=== PATIENT | female | born 1965 | race Caucasian/White ===

== ENCOUNTER 2018-01-28 14:20 | Emergency (ER) | payer OTHER, SELFPAY ==
--- NOTE | 2018-01-28 15:06 | RAD ---
AP VIEW OF THE CHEST: INDICATION: Chest pain. COMPARISON: Prior exam dated 02/07/16. FINDINGS: Lungs are clear. Cardiomediastinal silhouette is within normal limits. No acute osseous abnormality is evident. IMPRESSION: No acute cardiopulmonary abnormality. POS: HARESH
[2018-01-28 15:19] LABS: #Eosinphils 0.1 thou/uL (0.0-0.7); #Lymphocytes 2.1 thou/uL (1.20-3.40); #Monocytes 0.4 thou/uL (0.11-0.59); #Neutrophils 3.6 thou/uL (1.40-6.50); %Basophils 0.8 % (0.0-1.0); %Lymphocytes 33.9 % (21.0-51.0); %Monocytes 5.6 % (0.0-10.0); %Neutrophils 57.7 % (42.0-75.0); Hemoglobin 13.7 g/dL (12.0-16.0); Mean Corpuscular HGB CONC 35.2 g/dL (32.0-36.0); Mean Corpuscular Hemoglobin 31.6 pg (27.0-31.0); Mean Corpuscular Volume 89.8 fL (78.0-98.0); Mean Platelet Volume 8.2 fL (7.4-10.4); Platelet Count 262 thou/uL (130-400); RBC Distribution Width 11.9 % (11.5-14.5); Red Blood Cell (RBC) Count 4.33 mill/uL (4.20-5.40); White Blood Cell (WBC) Count 6.2 thou/uL (4.8-10.8)
[2018-01-28 15:26] LABS: ALT (SGPT) 15 U/L (8-55); AST (SGOT) 24 U/L (5-34); Albumin 4.5 g/dL (3.5-5.0); Alkaline Phosphatase 73 U/L (40-150); Anion Gap 15 mmol/L (10-20); BUN (Urea Nitrogen) 10 mg/dL (9.8-20.1); Bilirubin, Total 0.6 mg/dL (0.2-1.2); Calc. Creatinine Clearance 0 mL/min (70-130); Calcium 9.7 mg/dL (7.8-10.44); Carbon Dioxide 22 mmol/L (22-29); Chloride 105 mmol/L (98-107); Estimated GFR-MDRD 73; Globulin 2.1 g/dL (2.4-3.5); Glucose 85 mg/dL (70-105); Potassium 4.2 mmol/L (3.5-5.1); Protein, Total 6.6 g/dL (6.0-8.3); Sodium 138 mmol/L (136-145)
[2018-01-28] MEDS ORDERED: Nitroglycerin 2% Ointment 1 INCH/1 GM Packet ONE (15:27)
[2018-01-28 15:32] LABS: Troponin I Less than 0.010 ng/mL (< 0.028)
[2018-01-28 17:52] LABS: CKMB 0.9 ng/mL (0-6.6); Troponin I Less than 0.010 ng/mL (< 0.028)
== END 2018-01-28 19:12 | disposition home or self-care (01) ==
LOC: ERS 14:20
DX: R07.89 Other chest pain (principal); R06.02 Shortness of breath; M79.7 Fibromyalgia; G43.909 Migraine, unspecified, not intractable, without status migrainosus; E03.9 Hypothyroidism, unspecified; F41.9 Anxiety disorder, unspecified; F32.9 Major depressive disorder, single episode, unspecified; F17.210 Nicotine dependence, cigarettes, uncomplicated; Z79.899 Other long term (current) drug therapy
CPT/HCPCS: 36415; 71045; 80053; 82553; 84484; 85025; 85379; 93005

== ENCOUNTER 2018-10-21 12:46 | Outpatient (CLI) | payer OTHER ==
--- NOTE | 2018-10-21 14:30 | MMO ---
Bilateral MAMMO Bilat Screen [facility]DI. CLINICAL HISTORY: Patient is 53 years old and is seen for screening. The patient has no family history of breast cancer. The patient has no personal history of cancer. VIEWS: The views performed were: bilateral craniocaudal and bilateral mediolateral oblique. FILMS COMPARED: The present examination has been compared to prior imaging studies performed at [facility] on 01/26/2014, 04/03/2015 and 02/23/2017. This study has been interpreted with the assistance of computer-aided detection. MAMMOGRAM FINDINGS: There are scattered fibroglandular densities. There are stable benign appearing calcifications seen in the right breast. There are no suspicious masses, suspicious calcifications, or new areas of architectural distortion. IMPRESSION: THERE IS NO MAMMOGRAPHIC EVIDENCE OF MALIGNANCY. A ROUTINE FOLLOW-UP MAMMOGRAM IN 1 YEAR IS RECOMMENDED. ACR BI-RADS Category 2 - Benign finding MAMMOGRAPHY NOTE: 1. A negative mammogram report should not delay a biopsy if a dominant of clinically suspicious mass is present. 2. Approximately 10% to 15% of breast cancers are not detected by mammography. 3. Adenosis and dense breasts may obscure an underlying neoplasm.
== END 2018-10-21 12:47 | disposition home or self-care (01) ==
LOC: SCSMAMMO 12:46
PROVIDERS: ATTEND Family Medicine
DX: Z12.31 Encounter for screening mammogram for malignant neoplasm of breast (principal)
CPT/HCPCS: 77067

== ENCOUNTER 2018-11-15 10:16 | Outpatient (CLI) | payer OTHER ==
--- NOTE | 2018-11-15 10:54 | RAD ---
XR Lumbar Spine 2 Or 3 View HISTORY: Low back pain. COMPARISON: None. FINDINGS: There is minimal scoliotic change convex to the right. Vertebral bodies maintain normal hei ght tiny osteophytes are seen without disc narrowing. Pedicles are intact. No spondylolisthesis. IMPRESSION: Minimal arthritic changes of the spine.
--- NOTE | 2018-11-15 10:56 | RAD ---
XR Cerv Sp Ap Lat STANDARD HISTORY: Neck pain COMPARISON: None. FINDINGS: The vertebral bodies are normal in height. There is mild disc narrowing at C5-6. There are degenerative facet changes present. No soft tissue swelling. IMPRESSION: Mild arthritic changes of the spine.
== END 2018-11-15 10:17 | disposition home or self-care (01) ==
LOC: BICRAD 10:16
PROVIDERS: ATTEND Family Medicine
DX: M54.5 Low back pain (principal); M54.2 Cervicalgia; M47.816 Spondylosis without myelopathy or radiculopathy, lumbar region; M47.812 Spondylosis without myelopathy or radiculopathy, cervical region
CPT/HCPCS: 72040; 72100

== ENCOUNTER 2018-12-27 12:26 | Emergency (ER) | payer OTHER ==
[2018-12-27] MEDS ORDERED: HYDROcodone/Acetaminophen 5/325 mg Tablet ONE (14:24)
== END 2018-12-27 15:15 | disposition home or self-care (01) ==
LOC: ERS 12:26
DX: M54.5 Low back pain (principal); G89.29 Other chronic pain; F41.9 Anxiety disorder, unspecified; F32.9 Major depressive disorder, single episode, unspecified; F17.210 Nicotine dependence, cigarettes, uncomplicated; E03.9 Hypothyroidism, unspecified
CPT/HCPCS: 99283

== ENCOUNTER 2020-05-21 13:18 | Outpatient (CLI) | payer OTHER ==
--- NOTE | 2020-05-21 14:24 | MMO ---
Bilateral MAMMO Bilat Screen [facility]. CLINICAL HISTORY: Patient is 55 years old and is seen for screening. The patient has no family history of breast cancer. The patient has no personal history of cancer. VIEWS: The views performed were: bilateral craniocaudal with tomosynthesis and bilateral mediolateral oblique with tomosynthesis. FILMS COMPARED: The present examination has been compared to prior imaging studies performed at [facility] on 10/21/2018, and at [facility] on 01/26/2014, 04/03/2015 and 02/23/2017. This study has been interpreted with the assistance of computer-aided detection. MAMMOGRAM FINDINGS: There are scattered fibroglandular densities. Finding 1: There are stable benign appearing densities seen in both breasts. Finding 2: There is a lobular mass measuring 8 millimeters with indistinct margins seen in the right breast at 12 o'clock. IMPRESSION: FINDING 1: STABLE BENIGN APPEARING DENSITIES IN BOTH BREASTS ARE BENIGN. FINDING 2: MASS IN THE RIGHT BREAST REQUIRES ADDITIONAL EVALUATION. ADDITIONAL PROJECTIONS (RIGHT CRANIOCAUDAL SPOT COMPRESSION; RIGHT MEDIOLATERAL OBLIQUE SPOT COMPRESSION; AND RIGHT MEDIOLATERAL) ARE RECOMMENDED. AN ULTRASOUND EXAM IS RECOMMENDED IF NEEDED. ADDITIONAL IMAGING. THE RESULTS OF THIS EXAM WERE SENT TO THE PATIENT. ACR BI-RADS Category 0 - Incomplete: Need additional imaging evaluation. [facility] will notify the patient of the need for additional imaging services. MAMMOGRAPHY NOTE: 1. A negative mammogram report should not delay a biopsy if a dominant of clinically suspicious mass is present. 2. Approximately 10% to 15% of breast cancers are not detected by mammography. 3. Adenosis and dense breasts may obscure an underlying neoplasm. Reported by: TOI DANIELLE MD Electonically Signed: [id number]
== END 2020-05-21 13:19 | disposition home or self-care (01) ==
LOC: BICMAMMO 13:18
PROVIDERS: ATTEND Family Medicine
DX: Z12.31 Encounter for screening mammogram for malignant neoplasm of breast (principal); N63.10 Unspecified lump in the right breast, unspecified quadrant
CPT/HCPCS: 77063; 77067

== ENCOUNTER 2020-05-27 14:18 | Outpatient (CLI) | payer OTHER ==
--- NOTE | 2020-05-27 15:08 | ULT ---
EXAM: US Breast Limited Rt DATE: 05/27/2020 12:00 AM INDICATION: Follow-up right breast mass lesion seen in the 12:00 position of the right breast, midpo sterior depth. COMPARISON: Diagnostic mammogram dated May 27, 2020. FINDING: There is a 4 x 3 x 3 mm cyst with an adjacent 2 x 2 mm cyst seen within the region of the r ight breast mass lesion, 12:00 position, mid to posterior depth. IMPRESSION:BI-RADS Category 2-benign. Small cluster of cysts correspond to the mammographic abnormali ty seen in the right breast 12:00 position, mid to posterior depth. Patient was counseled the findings prior to leaving the [facility].
--- NOTE | 2020-05-27 15:23 | MMO ---
Right Breast MAMMO Unilat Diag DDI RT+ELI. CLINICAL HISTORY: Patient is 55 years old and is seen for additional evaluation requested at current screening. The patient has no family history of breast cancer. The patient has no personal history of cancer. VIEWS: The views performed were: right craniocaudal spot compression with tomosynthesis; right mediolateral oblique spot compression with tomosynthesis; and right mediolateral with tomosynthesis. FILMS COMPARED: The present examination has been compared to prior imaging studies performed at [facility] on 10/21/2018, and at [facility] on 02/23/2017, 05/21/2020 and 05/27/2020. This study has been interpreted with the assistance of computer-aided detection. MAMMOGRAM FINDINGS: There are scattered fibroglandular densities. Additional evaluation was performed for the lobular mass in the right breast, 12 o'clock seen on 05/21/2020. On the present examination, there is a lobular mass measuring 8 millimeters with indistinct margins in the right breast at 12 o'clock. The mass was shown to be a cyst on ultrasound. There are no suspicious masses, suspicious calcifications, or new areas of architectural distortion. IMPRESSION: THERE IS NO MAMMOGRAPHIC EVIDENCE OF MALIGNANCY. THE FINDINGS AND RECOMMENDATIONS WERE DISCUSSED WITH THE PATIENT PRIOR TO HER LEAVING THE CENTER. A ROUTINE FOLLOW-UP MAMMOGRAM IN 1 YEAR IS RECOMMENDED. THE RESULTS OF THIS EXAM WERE SENT TO THE PATIENT. ACR BI-RADS Category 2 - Benign finding MAMMOGRAPHY NOTE: 1. A negative mammogram report should not delay a biopsy if a dominant of clinically suspicious mass is present. 2. Approximately 10% to 15% of breast cancers are not detected by mammography. 3. Adenosis and dense breasts may obscure an underlying neoplasm. Reported by: SUDHAKAR VILLAFANA MD Electonically Signed: [id number]
== END 2020-05-27 14:19 | disposition home or self-care (01) ==
LOC: BICMAMMO 14:18
PROVIDERS: ATTEND Family Medicine
DX: R92.8 Other abnormal and inconclusive findings on diagnostic imaging of breast (principal); N60.01 Solitary cyst of right breast
CPT/HCPCS: G0279

== ENCOUNTER 2021-05-30 07:57 | Outpatient (CLI) | payer OTHER ==
[2021-05-30] MEDS ORDERED: Iopamidol 370 76% 100 ML VIAL ONE (12:39)
[2021-05-30] MEDS ORDERED: Iopamidol 370 76% 50 ML VIAL FS ONE (12:39)
== END 2021-05-30 07:58 | disposition home or self-care (01) ==
LOC: CT 07:57
PROVIDERS: ATTEND Family Medicine
DX: R10.13 Epigastric pain (principal); K92.1 Melena; R19.7 Diarrhea, unspecified
CPT/HCPCS: 74177; Q9967

== ENCOUNTER 2021-07-08 10:16 | Outpatient (CLI) | payer OTHER | END 2021-07-08 10:17 | disposition home or self-care (01) | LOC: BICCT 10:16 | PROVIDERS: ATTEND Family Medicine | DX: Z12.31 Encounter for screening mammogram for malignant neoplasm of breast (principal); R93.89 Abnormal findings on diagnostic imaging of other specified body structures; F17.200 Nicotine dependence, unspecified, uncomplicated | CPT/HCPCS: 71250; 77067 ==

== ENCOUNTER 2022-07-08 13:30 | Outpatient (CLI) | payer OTHER | END 2022-07-08 13:31 | disposition home or self-care (01) | LOC: BICMAMMO 13:30 | PROVIDERS: ATTEND Family Medicine | DX: Z12.31 Encounter for screening mammogram for malignant neoplasm of breast (principal); N63.11 Unspecified lump in the right breast, upper outer quadrant | CPT/HCPCS: 77067 ==

== ENCOUNTER 2022-07-21 13:52 | Outpatient (CLI) | payer OTHER | END 2022-07-21 13:53 | disposition home or self-care (01) | LOC: BICMAMMO 13:52 | PROVIDERS: ATTEND Family Medicine | DX: N63.11 Unspecified lump in the right breast, upper outer quadrant (principal) | CPT/HCPCS: G0279 ==

== ENCOUNTER 2022-11-10 12:47 | Outpatient (CLI) | payer OTHER | END 2022-11-10 12:48 | disposition home or self-care (01) | LOC: CT 12:47 | PROVIDERS: ATTEND Internal Medicine | DX: Z12.2 Encounter for screening for malignant neoplasm of respiratory organs (principal); Z87.891 Personal history of nicotine dependence | CPT/HCPCS: 71271 ==

== ENCOUNTER 2023-08-03 14:27 | Outpatient (CLI) | payer BC | END 2023-08-03 14:28 | disposition home or self-care (01) | LOC: BICMAMMO 14:27 | PROVIDERS: ATTEND Internal Medicine | DX: N63.11 Unspecified lump in the right breast, upper outer quadrant (principal) | CPT/HCPCS: 76642; 77066; G0279 ==

== ENCOUNTER 2024-04-26 07:01 | Outpatient (CLI) | payer BC | END 2024-04-26 07:02 | disposition home or self-care (01) | LOC: BICULT 07:01 | PROVIDERS: ATTEND Internal Medicine | DX: R10.9 Unspecified abdominal pain (principal); R10.2 Pelvic and perineal pain | CPT/HCPCS: 76700; 76856 ==